=== PATIENT | female | born 1955 | race Caucasian/White ===

== ENCOUNTER 2017-04-26 04:54 | Inpatient (IN) | payer OTHER ==
[~2017-04-26] VITALS: Ht 167.6 cm; Wt 99.8 kg
[~2017-04-26 04:54] MED LIST: ALPRAZOLAM0.25 M1 PO; CARDIZEM CD120 M2 PO; CIPROFLOXACIN750 M1 PO; DELTASONE20 MG PO; DULOXETINE HCL30 MG PO; DULOXETINE30 MG PO; ESCITALOPRAM OX10 MG PO; FERROUS SULFAT325 M3 PO; FLOMAX(MONOGRA0.4 MG PO; HYDROXYZINE HCL25 M2 PO; LEVOTHYROXIN0.137 MG PO; LEVOTHYROXINE150 MCG PO; MULTI-DAY VITA1 EACH PO; MULTIVITAMINS1 EAC9 PO; NORCO 325 MG-51 TAB PO; OMEPRAZOLE40 MG PO; PERCOCET 325 MG1 TA2 PO; PERCOCET 5-3251 EACH PO; PERCOCET 7.5-31 EACH PO; PRAMIPEXOLE DIHY1 MG PO; PREDNISONE10 M2 PO; ROPINIROLE HY0.25 MG PO; VANCOMYCIN HCL1 G1 IV; VITAMIN D250000 UNIT PO; VITAMIN D50000 IU PO; XARELTO15 M1 PO; XARELTO20 M2 PO; ZANTAC300 MG PO; ZOFRAN ODT4 MG PO
--- NOTE | 2017-04-26 13:06 | Patient Discharge Instructions ---
Discharge Instructions General Discharge Information You were seen/treated for: Pain Related to bilateral knee arthritis You had these procedures: Bilateral total knee replacement Watch for these problems: Increasing pain despite the use of pain medication Increasing redness, warmth or swelling Drainage of any type from incision Inability to bear weight on operative leg Persistent nausea and vomiting Fever greater than 101.5 degrees Other wound care: Please keep wound clean and dry. No ointments or lotions of any type on or near incision. Your dressing will be changed on the second day after your surgery. Daily dry dressing changes are recommended each day thereafter. You may shower 48hr after surgery. Do not soak your wound- no tub baths or swimming. Special Instructions: Eliquis (apixaban): You are taking this medication to help prevent blood clot formation during the postoperative period. Take as directed. Diet Continue normal diet: Yes Activity Activity Limited to: Weight bear as tolerated Additional ACTIVITY Info: Use assistive devices as needed Acute Coronary Syndrome Inclusion Criteria At DC or during hospital stay patient has or had the following: ACS DIAGNOSIS No Discharge Core Measures Meds if any: Prescribed or Continued at Discharge Meds if any: NOT Prescribed or Continued at Discharge Congestive Heart Failure Inclusion Criteria At DC or during hospital stay patient has or had the following: CHF DIAGNOSIS No Discharge Core Measures Meds if any: Prescribed or Continued at Discharge Meds if any: NOT Prescribed or Continued at Discharge Cerebrovascular accident Inclusion Criteria At DC or during hospital stay patient has or had the following: CVA/TIA Diagnosis No Discharge Core Measures Meds if any: Prescribed or Continued at Discharge Meds if any: NOT Prescribed or Continued at Discharge Venous thromboembolism Inclusion Criteria VTE Diagnosis No VTE Type NONE VTE Confirmed by (Test) NONE Discharge Core Measures - Per Current guidelines, there needs to be overlap - treatment for the first 5 days of Warfarin therapy. - If discharged on Warfarin prior to 5 days of - overlap therapy, the patient will need to be - assessed for post discharge needs including - *Post discharge parental anticoagulation - *Warfarin and/or parental anticoagulation education - *Follow up date to check INR post discharge At least 5 days overlap therapy as Inpatient No Meds if any: Prescribed or Continued at Discharge Note: Overlap Therapy is Warfarin and Anticoagulant Meds if any: NOT Prescribed or Continued at Discharge
--- NOTE | 2017-04-26 13:09 | Surgical Discharge Summary ---
Visit Information Visit Dates Admission Date: 04/26/17 Discharge Date: 04/29/17 History of Present Illness Chief Complaint: Bilateral knee pain related to osteoarthritis Medical History Neurological: restless leg syndrome Renal: nephrolithiasis Musculoskeletal: osteoarthritis Psychiatric: depression Endocrine: Harmeet's thyroiditis History of MRSA: No History of VRE: No History of CDIFF: No Pneumonia Vaccine: 12/04/12 Surgical History Pertinent Surgical History: hysterectomy, knee replacement, S/P RIGHT TIBIAL ORIF WITH SCREW FIXATION status post ovarian cystectomy status post gastric bypass 2004 status post left bunionectomy Psychosocial History Who Do You Live With? Spouse Services at Home: None What is Your Primary Language? Thai Review of Systems: See H&P Hospital Course Course Attending Physician: Germain Landrum MD Primary Care Physician: Vivi Ross MD, I. Hospital Course: Patient was admitted to the hospital for an elective bilateral total knee replacement. Procedure was tolerated well and patient was transferred to a general surgical floor. Diet was advanced and tolerated. Physical therapy performed evaluation and treatment. At time of hospital discharge, vital signs were stable, neurovascular status was intact, and pain was controlled with the use of oral pain medications. Allergies: Coded Allergies: NSAIDS (Non-Steroidal Anti-Inflamma (HAD GASTRIC BYPASS 04/21/17) Quinolones (SKIN PEELED -SJS 04/21/17) aspirin (HAD GASTRIC BYPASS 04/21/17) vancomycin (skin peeled -SJS 04/21/17) Significant Procedures: 04/26/2017 bilateral total knee replacement, Dr. Landrum Disposition Summary Disposition Principal Diagnosis: Bilateral knee osteoarthritis Additional Diagnosis: Same, status post bilateral total knee replacement Discharge Disposition: home health services Discharge Instructions General Discharge Information Code Status: Full Code Patient's Diet: Regular Patient's Activity: WBAT, use assistive devices as needed Follow-Up Instructions/Appts: Call to be seen in 2 weeks as an outpatient Medications at Discharge Discharge Medications: Continue taking these medications: Ergocalciferol (Vitamin D2) (Vitamin D2) 50,000 UNIT CAPSULE 1 Capsule ORAL EVERY MONDAY Levothyroxine Sodium (Levothyroxine Sodium) 150 MCG TABLET 1 Tablet ORAL DAILY Qty = 30 Comments: Last Taken: 09/30/15 Time: 0500 Pramipexole Di-HCl (Pramipexole Dihydrochloride) 1 MG TABLET 1 Tablet ORAL Every night Qty = 30 Comments: Last Taken: 09/29/15 Time: 9 PM Duloxetine HCl (Duloxetine HCl) 30 MG CAPSULE. 1 Capsule ORAL DAILY Hydroxyzine Hydrochloride (Atarax) 25 MG TAB 2 Tablet ORAL Q4-6H as needed for ITCHING Ferrous Sulfate (Ferrous Sulfate) 325 MG (65 MG IRON) TABLET 1 Tablet ORAL DAILY Multiple Vitamin (Multivitamins) 1 EACH TABLET 1 Tablet ORAL DAILY Start taking the following new medications: Apixaban (Eliquis) 2.5 MG TABLET 2.5 Milligram ORAL TWICE DAILY Qty = 30 No Refills Oxycodone HCl/Acetaminophen (Percocet 5-325 MG Tablet) 5 MG-325 MG TABLET 1-2 Tablet ORAL EVERY 4 HOURS NEEDED as needed for PAIN SCALE 7-10 ( SEVERE) Qty = 40 No Refills Sennosides/Docusate Sodium (Senna Plus Tablet) 8.6 MG-50 MG TABLET 2 Tablet ORAL AT BEDTIME NEEDED as needed for NO BM IN TWO DAYS Qty = 20 No Refills
--- NOTE | 2017-04-26 13:44 | Operative Report ---
Operative/Inv Procedure Report Surgery Date: 04/26/17 Name of Procedure: #1 right total knee arthroplasty #2 left total knee arthroplasty Pre-Operative Diagnosis: Primary osteoarthritis left knee and primary osteoarthritis right knee Post-Operative Diagnosis: Same Estimated Blood Loss: less than 50ml Surgeon/Health Clinician: Lucita PATIÑO,Germain CARLSON Anesthesia: moderate sedation, block IV Fluids: See anesthesia record Implants: Right knee: Striker triathlon posterior stabilize knee, size 5 femur, size 5 tibia, 9 mm polyethylene insert and a 33 patellar button Left knee: Striker triathlon posterior stabilize knee size 5 femur, size 5 tibia , 13 mm polyethylene insert and a 31 patellar button Specimens: bone to pathology Tourniquet: Left knee 53 minutes, right knee 51 minutes Complications: None Condition: Stable Operative Indication: Patient's a 61-year-old female with severe osteoarthritis and complete loss of joint space on the medial compartments of both knees as well as status post right lateral tibial plateau fracture with C Brody commitment post traumatic arthritis. She failed conservative treatment was indicated for bilateral total knee arthroplasty. The risks and benefits of the procedures were discussed with the patient in detail in the office and she wished to proceed. A skilled set hands was absolutely necessary and provided by physician academic affairs assistant Nikunj Ross weighted with limb positioning and traction as well as component assembly and soft tissue retraction throughout the case. The patient's was morbidly obese and required 2 sets a skilled hands as well as extra attention and detail during the procedure. Operative/Procedure Note Note: Informed consent was obtained and the patient was brought to operative room and placed on the table. Spinal anesthesia was performed. The patient was then placed supine. A Azevedo catheter was placed and bilateral thigh tourniquets were placed. The bilateral lower extremity prepped and draped in the usual sterile fashion with both extremities prepped out. We began with the right total knee arthroplasty. On the right knee after the tourniquet then inflated to 350 mmHg a standard midline incision was made. Sharp dissection was carried down to the skin and subcutaneous tissue. A medial parapatellar arthrotomy was performed and the patella was everted. Fat pad was removed from the patellar tendon. Patellar thickness was measured at 23 mm and 9 mm of bone was resected. The patella on the right was sized to be size 33 patella and the jig for the 32 patella was placed on a clamp and the drill holes were made. Patella was then retracted laterally and protected and the knee was placed into flexion. Z retractors were placed to protect the collateral ligaments. The lateral medial menisci were sharply debrided. The cruciate ligaments were resected. Step drill was used to enter the intramedullary canal the femur. The intramedullary distal femoral cutting guide was placed with a 6 valgus cut and a 10 mm resection cut. Distal femoral cut was made without, patient. The femur sized to be a size 5 femur with the sizing block. A size 5 4-in-1 cutting block was placed in the distal femur and the anterior, posterior, chamfer cuts were made without complication. Bone was passed off as specimen. A size 5 proximal cut guide was placed on the femur and the box cut was made for posterior stabilized knee. Once this was done curved osteotomes were used to remove any posterior ossified off the femoral condyles. The remainder of the menisci were resected. A pickle fork retractor was placed behind the tibia and the tibia was translated anteriorly. Step drill was used to enter the intramedullary canal of the tibia. The intramedullary cutting guide for the tibia was placed down the tibial canal and a cut was made by a planned resection of 4 mm off the medial compartment of the knee. The tibial cut was made without complication. The tibial tray was then sized to be a size 5 tibial tray. A trial reduction was done with a size 5 tibial tray a size 5 femur and a 9 mm polyethylene insert. The knee had full extension and flexion of 110. The knee was stable to varus and valgus stress at 0 and 60. There is no significant laxity in either the medial or lateral collateral ligaments. The knee was taken through range of motion the and the rotation of the components was marked for the tibial placement. The extremity removed and the tibial tray was pinned in place. The keel cut was made without complication. All entrance removed and the knee was pulse lavaged. Cement was mixed on the back table and the components were then cemented in place with the tibial component cemented first followed by the femoral component and the patellar button. A 9 mm polyethylene trial insert was placed onto the tibial tray and the knee is placed in extension while the cement hardened. All excess cement had been removed by curettes. The knee was again taken through range of motion and found to be stable. A 9 mm polyethylene insert was opened and locked onto the tibial tray after pulse lavaged. The tourniquet was released and any bleeding was stopped with electrocautery. The arthrotomy is closed with #1 Vicryl interrupted sutures and the subcutaneous tissues closed with #1 Vicryl and 2-0 Vicryl interrupted ruptured sutures. The skin was closed with anali. Attention was then turned to the left knee. At this time the Esmark was used to exsanguinate the limb and the tourniquet was inflated to 350 minus mercury. A standard midline incision was made on the left knee for total knee arthroplasty. Sharp dissection was carried down through the skin and subcutaneous tissue and fat. A medial parapatellar arthrotomy was performed. The patella was everted and the fat pad is removed from the patellar tendon. Patellar thickness was measured be 23 mm a plan resection of 9 mm was performed. The patella unless was sized to be a size 31 patellar. The jig for the 31 patella was clamped placed on the clamp and the drill holes were made. The patella was retracted laterally and protected. Z retractors were placed to protect the collateral ligaments. A step drill was used to enter the femoral canal. The intramedullary cutting guide was then placed into the femur and a distal femoral cut with a 6 valgus and 10 mm resection cut was made. The femur was sized to be a size 5 femur. A size 5, 4-in-1 cutting block was placed in the anterior, posterior, chamfer cuts were made without complication. A size 5 proximal cut guide was placed on the femur and the box cut was made without complication. Curved osteotomes were used to remove osteophytes from the posterior femoral condyles. The medial and lateral menisci were trimmed and removed completely. Pickle fork retractor was placed and the intramedullary canal the tibia was entered with a step drill. The tibial plateau was measured to be a size 5 tibia. 4 mm of bone had been resected off the medial compartment the knee for the planned tibial cut. The knee was taken through a range of motion with a trial femur size 5, size 5 trial tibia and a 9 mm polyethylene insert. The knee was lax with varus and valgus stressing and we went up to a size 11 polyethylene trial. The knee was again taken through a range of motion and the rotation of tibial component was marked. The components removed and the tibiall tray was pinned in place. The keel cut was made. All components removed and the cement was mixed on the back table for the left knee. The components were cemented in place with the tibial component cemented first followed by the patella femoral component and the patellar button. Excess cement was removed with curettes. A 11 mm polyethylene insert was placed into the tray and the knee was placed in extension while cement hardened. The knee was again tested and again found to be slightly loose to medial varus and valgus stress throughout a size 13 polyethylene insert. This had full extension and flexion of 110 and was stable at 0 and 60 to varus valgus stress. A 13 mm polyethylene insert was opened and locked into the tibial tray. The knee was pulse lavaged and the tourniquet was released. Bleeding was stopped flexor cautery. The arthrotomy is closed with # 1 Vicryl interrupted sutures. Subcutaneous tissues were closed with #1 Vicryl and 2-0 Vicryl interrupted sutures. The skin was closed anali. Sterile dressings were applied on both knees and the patient was awakened taken recovery room in stable condition.
[2017-04-26 13:45] VITALS: BP 118/72
--- NOTE | 2017-04-26 15:15 | Admission Core Measures ---
Acute Coronary Syndrome (CM) ACS Core Measures Acute Coronary Syndrome Diagnosis No Congestive Heart Failure (NEW) CHF Core Measures Congestive Heart Failure Diagnosis No Cerebrovascular Accident (NEW) CVA Core Measures CVA/TIA Diagnosis No Venous Thromboembolism VTE Core Lawrence (View Protocol) VTE Risk Factors Surgery No Mechanical VTE Prophylaxis d/t N/A MechProphylax Ordered No VTE Pharm Prophylaxis d/t NA PharmProphylax ordered Problem List As ranked by this Provider includes Assessment & Plan 1. History of arthroplasty of both knees HOME MEDS Home Med List Duloxetine HCl 30 MG CAPSULE.DR 1 CAP PO DAILY NERVE PAIN/MENTAL HEALTH ( Reported) Ergocalciferol (Vitamin D2) (Vitamin D2) 50,000 UNIT CAPSULE 1 CAP PO QMON SUPPLEMENT (Reported) Ferrous Sulfate 325 MG (65 MG IRON) TABLET 1 TAB PO DAILY SUPPLEMENT ( Reported) Hydroxyzine Hydrochloride (Atarax) 25 MG TAB 2 TAB PO Q4-6H PRN ITCHING ( Reported) Levothyroxine Sodium 150 MCG TABLET 1 TAB PO DAILY THYROID (Reported) Multiple Vitamin (Multivitamins) 1 EACH TABLET 1 TAB PO DAILY SUPPLEMENT ( Reported) Pramipexole Di-HCl (Pramipexole Dihydrochloride) 1 MG TABLET 1 TAB PO QPM RESTLESS LEG SYNDROME (Reported)
--- NOTE | 2017-04-26 15:24 | PN- Orthopedic ---
Subjective Subjective: POC S/P BIALT TKA COMFORTABLE, NO MAJOR COMPLAINTS DENIES CP, SOB, NO N+V BILAT ONQ PLACED Y ANESTHESIA GARZA WITH CLEAR URINE Objective Vital Signs and I&Os Vital Signs Date Time Temp Pulse Resp B/P B/P Pulse O2 O2 Flow FiO2 Mean Ox Delivery Rate 04/26 1345 97.9 68 16 118/72 93 Room Air Intake & Output 04/26 1600 04/26 0800 04/26 0000 04/25 1600 04/25 0800 04/25 0000 Intake Total 250 Output Total Balance 250 Intake, Oral 250 Patient 220 lb Weight Physical Exam: CV: RRR LUNGS: CLEAR ABD: SOFT, +BS EXT: BILAT LE DISTAL CMS GROSSLY INTACT DRSGS DRY ONQ IN PLACE GARZA: IN PLACE WITH CLEAR URINE Assessment/Plan Assessment/Plan ORTHO STABLE PLAN OOB WITH PT WBAT BILAT LE ELIQUIS BID/ALPS FOR DVT PROPHYLAXIS TITRATE PAIN MEDS ADVANCE DIET TOLERATE PROBABLE SNF UPON D/C Core Measures Venous Thromboembolism VTE Risk Factors Surgery No Mechanical VTE Prophylaxis d/t N/A MechProphylax Ordered No VTE Pharm Prophylaxis d/t NA PharmProphylax ordered
[2017-04-26 16:00] VITALS: BP 128/80
[2017-04-26 18:00] VITALS: BP 120/60
[2017-04-26 20:00] VITALS: BP 116/60
[2017-04-27 00:05] VITALS: BP 108/62
[2017-04-27 04:10] VITALS: BP 104/58
--- NOTE | 2017-04-27 07:36 | PN- Orthopedic ---
Subjective Subjective: Patient feels well, pain is controlled, no fever no flulike illness, no acute events overnight Objective Vital Signs and I&Os Vital Signs Date Time Temp Pulse Resp B/P B/P Pulse O2 O2 Flow FiO2 Mean Ox Delivery Rate 04/27 0410 98.1 65 20 104/58 96 Room Air 04/27 0005 98.2 67 20 108/62 96 Room Air 04/26 2000 97.8 77 20 116/60 94 04/26 1800 98.6 88 20 120/60 95 04/26 1600 98.4 74 20 128/80 95 04/26 1345 97.9 68 16 118/72 93 Room Air Intake & Output 04/27 0800 04/27 0000 04/26 1600 04/26 0800 04/26 0000 04/25 1600 Intake Total 760 1150 250 Output Total 1500 1700 Balance -740 -550 250 Intake, IV 520 600 Intake, Oral 240 550 250 Number 0 Bowel Movements Output, Urine 1500 1700 Patient 220 lb Weight Physical Exam: Well-developed well-nourished no apparent distress. HEENT: Atraumatic, extraocular motion intact Neck: Supple, no lymphadenopathy Respiratory: No respiratory distress Extremities: No edema RIGHT AND LEFT lower extremity dressing in place, Range of motion is 0-60 RLE, 0-45 LLE. Compression wrap in place. ALPS in place Neurovascularly intact distally Bilateral calves are supple, nontender. Neuro: Alert and oriented x3 Psych: Mood affect normal, normal memory normal judgment. Skin: Warm and dry, no rash on exposed skin Assessment/Plan Assessment/Plan Postop day #1 status post bilateral total knee arthroplasty Perioperative antibiotics. Pain medication as needed. Out of bed Continue on Q, DC tomorrow Physical therapy, weightbearing as tolerated DC IV fluids DC Azevedo Regular diet Follow a.m. labs Eliquis for DVT prophylaxis ALPS for DVT prophylaxis Regular home meds Dressing change postop day 2 Patient wishes to be discharged home with VNA services, likely postoperative day 3 Pt seen and examined w Dr Landrum Core Measures Venous Thromboembolism VTE Risk Factors Surgery No Mechanical VTE Prophylaxis d/t N/A MechProphylax Ordered No VTE Pharm Prophylaxis d/t NA PharmProphylax ordered
[2017-04-27 08:05] VITALS: BP 118/62
[2017-04-27 08:57] LABS: ABSOLUTE BASOPHIL COUNT 0 /CUMM (0.0-0.2); ABSOLUTE EOSINOPHIL COUNT 0 /CUMM (0.0-0.7); ABSOLUTE GRANULOCYTE CT 5.2 /CUMM (1.4-6.5); ABSOLUTE LYMPH COUNT 1.6 /CUMM (1.2-3.4); ABSOLUTE MONOCYTE COUNT 1.3 /CUMM (0.10-0.60); BASOPHIL % 0.4 % (0.0-2.0); EOSINOPHIL % 0.3 % (0-5); GRANULOCYTE % 64.2 % (42.2-75.2); HEMATOCRIT 29.2 % (37-47); MEAN CORPUSCULAR HGB 28.6 PG (27.0-31.0); MEAN CORPUSCULAR HGB CONC 32.9 G/DL (33.0-37.0); MEAN PLATELET VOLUME 7.8 FL (7.4-10.4); PLATELET COUNT 304 /CUMM (130-400); RBC DISTRIBUTION WIDTH 14.6 % (11.5-14.5); RED BLOOD CELL CT 3.35 /CUMM (4.20-5.40)
[2017-04-27 10:38] VITALS: BP 120/60
[2017-04-27 14:13] VITALS: BP 120/66
[2017-04-27 22:15] VITALS: BP 110/62
[2017-04-28 06:54] VITALS: BP 128/68
--- NOTE | 2017-04-28 07:52 | PN- Orthopedic ---
Subjective Subjective: POD #2 s/p bilateral total knee replacements by Dr. Landrum. NO complaints at present. Denies CP/SOB, N/V, F/C. Voiding spontaneously. Tolerating a regular diet. Had BM this morning. Objective Vital Signs and I&Os Vital Signs Date Time Temp Pulse Resp B/P B/P Pulse O2 O2 Flow FiO2 Mean Ox Delivery Rate 04/28 0654 98.9 70 20 128/68 96 Room Air 04/27 2215 98.0 66 20 110/62 99 Room Air 04/27 1413 97.4 57 20 120/66 100 04/27 1038 88 18 120/60 99 Room Air 04/27 0836 60 04/27 0805 97.7 47 20 118/62 95 Intake & Output 04/28 0800 04/28 0000 04/27 1600 04/27 0800 04/27 0000 04/26 1600 Intake Total 480 480 736 853 3202 250 Output Total 130 1500 1700 Balance 480 480 690 -740 -550 250 Intake, IV 20 520 600 Intake, Oral 480 480 800 240 550 250 Number 0 Bowel Movements Output, Urine 130 1500 1700 Patient 220 lb Weight Physical Exam: Gen: AAOx3 in NAD Cor: S1+S2+ Lungs: CTA alberto Abd: soft, NT, ND, +BS x4 Ext: bilateral lower extremity dressings removed. Incisions C/D/I with anali. No surrounding erythema. Ecchymosis noted around left leg incision. Palpable DP pulses alberto. Lymphedema to alberto lower extremities from feet to thighs. Dressings replaced. Sensation intact. Dorsiflexion and plantar flexion intact. Current Medications: Current Medications Sig/Asa Start time Last Medication Dose Route Stop Time Status Admin Apixaban 2.5 MG BID 04/27 1000 AC 04/27 PO 2002 Celecoxib 400 MG DAILY 04/27 1000 AC 04/27 PO 0739 Diphenhydramine HCl 25 MG Q6P PRN 04/26 1315 AC IV Docusate Sodium 100 MG BID 04/27 2200 AC 04/27 PO 2004 Docusate Sodium 100 MG DAILY NEEDED PRN 04/26 1345 DC 04/27 PO 1154 Duloxetine HCl 30 MG DAILY 04/27 1000 AC 04/27 PO 0739 Ferrous Sulfate 325 MG DAILY 04/27 1000 AC 04/27 PO 0739 Hydroxyzine HCl 25 MG 4 TIMES/DAY PRN 04/26 1845 AC 04/26 PO 2049 Levothyroxine Sodium 0.15 MG DAILY AC 04/27 0700 AC 04/28 PO 0602 Metoclopramide HCl 10 MG Q6P PRN 04/26 1315 AC IV Morphine Sulfate 2 MG Q4P PRN 04/27 1999 AC 04/28 IV 0054 Morphine Sulfate 2 MG Q3P PRN 04/26 1345 DC IV Morphine Sulfate 4 MG Q3P PRN 04/26 1345 DC IV Naloxone HCl 0.2 MG .EVERY 5 MINUTES PRN 04/26 1315 AC IV Ondansetron HCl 4 MG Q6P PRN 04/26 1345 AC IV Oxycodone/ 1 TAB Q4P PRN 04/26 1345 AC 04/26 Acetaminophen PO 1837 Oxycodone/ 2 TAB Q4P PRN 04/26 1345 AC 04/28 Acetaminophen PO 0444 Patient Medication 1 ED ONE ONE 04/27 1200 HI Teaching ED 04/27 1201 Patient Medication 1 ED ONE ONE 04/27 0945 HI Teaching ED 04/27 0946 Polyethylene Glycol 17 GM DAILY NEEDED PRN 04/26 1345 AC PO Pramipexole 1 MG AT BEDTIME 04/26 220 04/27 Dihydrochloride PO 2004 Senna/Docusate Sodium 2 TAB AT BEDTIME NEED.. 04/26 1345 AC PO Tramadol HCl 50 MG Q4 PRN 04/27 1999 AC 04/27 PO 1955 Results Last 48 Hours of Labs: Laboratory Tests 04/27 0715 Chemistry Sodium (137 - 145 mmol/L) 138 Potassium (3.5 - 5.1 mmol/L) 4.3 Chloride (98 - 107 mmol/L) 103 Carbon Dioxide (22 - 30 mmol/L) 27 Anion Gap (5 - 16) 7 BUN (7 - 17 mg/dL) 11 Creatinine (0.5 - 1.0 mg/dL) 0.8 Estimated GFR (>60 ml/min) > 60 BUN/Creatinine Ratio (7 - 25 %) 13.8 Hematology CBC w Diff NO MAN DIFF REQ WBC (4.8 - 10.8 /CUMM) 8.0 RBC (4.20 - 5.40 /CUMM) 3.35 L Hgb (12.0 - 16.0 G/DL) 9.6 L Hct (37 - 47 %) 29.2 L MCV (81.0 - 99.0 FL) 87.0 MCH (27.0 - 31.0 PG) 28.6 MCHC (33.0 - 37.0 G/DL) 32.9 L RDW (11.5 - 14.5 %) 14.6 H Plt Count (130 - 400 /CUMM) 304 MPV (7.4 - 10.4 FL) 7.8 Gran % (42.2 - 75.2 %) 64.2 Lymphocytes % (20.5 - 51.1 %) 19.4 L Monocytes % (1.7 - 9.3 %) 15.7 H Eosinophils % (0 - 5 %) 0.3 Basophils % (0.0 - 2.0 %) 0.4 Absolute Granulocytes (1.4 - 6.5 /CUMM) 5.2 Absolute Lymphocytes (1.2 - 3.4 /CUMM) 1.6 Absolute Monocytes (0.10 - 0.60 /CUMM) 1.3 H Absolute Eosinophils (0.0 - 0.7 /CUMM) 0 Absolute Basophils (0.0 - 0.2 /CUMM) 0 Assessment/Plan Assessment/Plan A: POD #2 s/p alberto TKR; AVSS Plan: PT to see to eval for HHS vs STR. Case management to follow. Continue bowel regimen. COntinue pain regimen. Eliquis to continue for DVT prophylaxis. D/C likely tomorrow F/U am labwork. Core Measures Venous Thromboembolism VTE Risk Factors Surgery No Mechanical VTE Prophylaxis d/t N/A MechProphylax Ordered No VTE Pharm Prophylaxis d/t NA PharmProphylax ordered
[2017-04-28 08:59] LABS: ABSOLUTE BASOPHIL COUNT 0 /CUMM (0.0-0.2); ABSOLUTE EOSINOPHIL COUNT 0.1 /CUMM (0.0-0.7); ABSOLUTE GRANULOCYTE CT 7.1 /CUMM (1.4-6.5); ABSOLUTE LYMPH COUNT 1.4 /CUMM (1.2-3.4); ABSOLUTE MONOCYTE COUNT 0.8 /CUMM (0.10-0.60); BASOPHIL % 0.2 % (0.0-2.0); EOSINOPHIL % 0.7 % (0-5); GRANULOCYTE % 75.3 % (42.2-75.2); HEMATOCRIT 28.7 % (37-47); MEAN CORPUSCULAR HGB 28.7 PG (27.0-31.0); MEAN CORPUSCULAR HGB CONC 33.2 G/DL (33.0-37.0); MEAN CORPUSCULAR VOLUME 86.5 FL (81.0-99.0); MEAN PLATELET VOLUME 7.8 FL (7.4-10.4); PLATELET COUNT 307 /CUMM (130-400); RBC DISTRIBUTION WIDTH 14.7 % (11.5-14.5); RED BLOOD CELL CT 3.32 /CUMM (4.20-5.40); WHITE BLOOD CELL COUNT 9.4 /CUMM (4.8-10.8)
--- NOTE | 2017-04-28 12:29 | RADIOLOGY REPORT ---
EXAMINATION: XR KNEE BILATERAL CLINICAL INFORMATION: Status post bilateral total knee arthroplasty. COMPARISON: None. TECHNIQUE: 2 views each of both knees. FINDINGS: RIGHT KNEE: Postoperative changes of total right knee arthroplasty is noted with intact hardware and satisfactory alignment. Multiple air pockets are identified within the surgical bed, consistent with immediate postsurgical changes. LEFT KNEE: Postoperative changes of total left knee arthroplasty is noted with intact hardware and satisfactory alignment. Multiple air pockets are identified within the surgical bed, consistent with immediate postsurgical changes. IMPRESSION: Immediate postsurgical changes of bilateral total knee arthroplasty showing intact hardware and satisfactory alignment.
[2017-04-28 14:50] VITALS: BP 140/78
[2017-04-28 22:10] VITALS: BP 120/60
[2017-04-29 07:05] VITALS: BP 118/62
[2017-04-29 07:06] VITALS: BP 108/54; BP 118/62
--- NOTE | 2017-04-29 08:32 | PN- Orthopedic ---
Subjective Subjective: POD #3 s/p bilateral total knee replacements by Dr. Landrum. NO complaints at present. Denies CP/SOB, N/V, F/C. Voiding spontaneously. Tolerating a regular diet. Had BM this morning. Objective Vital Signs and I&Os Vital Signs Date Time Temp Pulse Resp B/P B/P Pulse O2 O2 Flow FiO2 Mean Ox Delivery Rate 04/29 0706 98.2 82 20 118/62 96 / 0705 98.2 82 20 118/62 96 04/28 2210 98.7 83 20 120/60 96 Room Air 04/28 1450 98.1 90 20 140/78 97 Intake & Output 04/29 1600 04/29 0800 04/29 0000 04/28 1600 04/28 0800 04/28 0000 Intake Total 100 100 360 480 480 Output Total 500 400 Balance -400 100 -40 480 480 Intake, Oral 100 100 360 480 480 Number 1 1 Bowel Movements Output, Urine 500 400 Physical Exam: Gen: AAOx3 in NAD Cor: S1+S2+ Lungs: CTA alberto Abd: soft, NT, ND, +BS x4 Ext: bilateral lower extremity dressings removed. Incisions C/D/I with anali. No surrounding erythema. Feet are warm and well perfused, dp 2+, notable Lymphedema to alberto lower extremities from feet to thighs. Sensation intact. Dorsiflexion and plantar flexion intact. Current Medications: Current Medications Sig/Asa Start time Last Medication Dose Route Stop Time Status Admin Apixaban 2.5 MG BID 04/27 1000 AC 04/28 PO 2138 Celecoxib 400 MG DAILY 04/27 1000 AC 04/28 PO 0830 Diphenhydramine HCl 25 MG Q6P PRN 04/26 1315 AC IV Docusate Sodium 100 MG BID 04/27 2200 AC 04/28 PO 0830 Duloxetine HCl 30 MG DAILY 04/27 1000 AC 04/28 PO 0830 Ferrous Sulfate 325 MG DAILY 04/27 1000 AC 04/28 PO 0830 Hydroxyzine HCl 25 MG 4 TIMES/DAY PRN 04/26 1845 AC 04/28 PO 2140 Levothyroxine Sodium 0.15 MG DAILY AC 04/27 0700 AC 04/29 PO 0520 Metoclopramide HCl 10 MG Q6P PRN 04/26 1315 AC IV Ondansetron HCl 4 MG Q6P PRN 04/26 1345 AC IV Oxycodone/ 1 TAB Q4P PRN 04/26 1345 AC 04/29 Acetaminophen PO 0520 Oxycodone/ 2 TAB Q4P PRN 04/26 134 AC 04/28 Acetaminophen PO 1804 Patient Medication 1 ED ONE ONE 04/28 1645 DC Teaching ED 04/28 1646 Polyethylene Glycol 17 GM DAILY 04/28 1000 AC PO Pramipexole 1 MG AT BEDTIME 04/26 2199 AC 04/28 Dihydrochloride PO 2137 Senna/Docusate Sodium 2 TAB AT BEDTIME NEED.. 04/26 134 AC 04/28 PO 2137 Tramadol HCl 50 MG Q4 PRN 04/27 1999 AC 04/27 PO 195 Results Last 48 Hours of Labs: Laboratory Tests 04/28 0830 Chemistry Sodium (137 - 145 mmol/L) 137 Potassium (3.5 - 5.1 mmol/L) 4.3 Chloride (98 - 107 mmol/L) 104 Carbon Dioxide (22 - 30 mmol/L) 25 Anion Gap (5 - 16) 8 BUN (7 - 17 mg/dL) 10 Creatinine (0.5 - 1.0 mg/dL) 0.6 Estimated GFR (>60 ml/min) > 60 BUN/Creatinine Ratio (7 - 25 %) 16.7 Hematology CBC w Diff NO MAN DIFF REQ WBC (4.8 - 10.8 /CUMM) 9.4 RBC (4.20 - 5.40 /CUMM) 3.32 L Hgb (12.0 - 16.0 G/DL) 9.5 L Hct (37 - 47 %) 28.7 L MCV (81.0 - 99.0 FL) 86.5 MCH (27.0 - 31.0 PG) 28.7 MCHC (33.0 - 37.0 G/DL) 33.2 RDW (11.5 - 14.5 %) 14.7 H Plt Count (130 - 400 /CUMM) 307 MPV (7.4 - 10.4 FL) 7.8 Gran % (42.2 - 75.2 %) 75.3 H Lymphocytes % (20.5 - 51.1 %) 15.3 L Monocytes % (1.7 - 9.3 %) 8.5 Eosinophils % (0 - 5 %) 0.7 Basophils % (0.0 - 2.0 %) 0.2 Absolute Granulocytes (1.4 - 6.5 /CUMM) 7.1 H Absolute Lymphocytes (1.2 - 3.4 /CUMM) 1.4 Absolute Monocytes (0.10 - 0.60 /CUMM) 0.8 H Absolute Eosinophils (0.0 - 0.7 /CUMM) 0.1 Absolute Basophils (0.0 - 0.2 /CUMM) 0 Assessment/Plan Assessment/Plan A: POD #3 s/p alberto TKR; AVSS Plan: PT to see to eval for HHS vs STR. Patient will likely only require HHS at home Case management to follow. Continue bowel regimen. COntinue pain regimen. Eliquis to continue for DVT prophylaxis. D/C likely today Core Measures Venous Thromboembolism VTE Risk Factors Surgery No Mechanical VTE Prophylaxis d/t N/A MechProphylax Ordered No VTE Pharm Prophylaxis d/t NA PharmProphylax ordered
[2017-04-29] MEDS ORDERED: PERCOCET 5-3251 EACH PO (10:10)
[2017-04-29] MEDS ORDERED: SENNA PLUS TAB1 EACH PO (10:10)
[2017-04-29] MEDS ORDERED: ELIQUIS2.5 M1 PO (10:10)
== END 2017-04-29 13:20 | disposition home health service (06) | DRG 462 ==
LOC: 2NA 04:54 → SDA 04:54 → ENRESERV 12:06 → ENTRNSPT 13:03 → EDTRNSPT 13:22 → EDTRNSPTSTS 13:23 → 2NA 13:33 → CMPTRNSPT 13:40 → ENPENDDIS 04-29 10:11 → 2NA 04-29 13:20
PROVIDERS: Nurse Practitioner; Physician Assistant Surgical
PROC: 0SRD0J9 Replacement of Left Knee Joint with Synthetic Substitute, Cemented, Open Approach (ICD-10-PCS; principal; 2017-04-26)
PROC: 0SRC0J9 Replacement of Right Knee Joint with Synthetic Substitute, Cemented, Open Approach (ICD-10-PCS; principal; 2017-04-26)
PROC: 3E0T3BZ Introduction of Anesthetic Agent into Peripheral Nerves and Plexi, Percutaneous Approach (ICD-10-PCS; 2017-04-26)
DX: M17.0 Bilateral primary osteoarthritis of knee (principal); I48.2 Chronic atrial fibrillation; J45.909 Unspecified asthma, uncomplicated; Z68.35 Body mass index [BMI] 35.0-35.9, adult; E66.9 Obesity, unspecified; F32.9 Major depressive disorder, single episode, unspecified; F41.9 Anxiety disorder, unspecified; E03.9 Hypothyroidism, unspecified; D50.9 Iron deficiency anemia, unspecified; Z86.718 Personal history of other venous thrombosis and embolism
CPT/HCPCS: 2NAP; 36415; 36592; 73560-LT; 73560-RT; 82436; 87086; 97110-GO; 97116-GO; 97161-GP; 97530-GO; C1713; J0690; J1100; J2795